=== PATIENT | male | born 1945 | race Caucasian/White ===

== ENCOUNTER 2017-12-15 12:37 | Emergency (ER) | payer OTHER ==
[~2017-12-15] VITALS: Ht 172.7 cm; Wt 104.3 kg
== END 2017-12-15 20:03 | disposition home or self-care (01) ==
LOC: ER 12:37
DX: R07.89 Other chest pain (principal); R55 Syncope and collapse; I65.23 Occlusion and stenosis of bilateral carotid arteries

== ENCOUNTER 2020-07-25 09:39 | Outpatient (CLI) | payer OTHER | END 2020-07-25 09:50 | disposition home or self-care (01) | LOC: TOM 09:39 → NUCLEAR 07-27 14:00 | PROVIDERS: ATTEND Internal Medicine Cardiovascular Disease | DX: K80.80 Other cholelithiasis without obstruction (principal); I70.8 Atherosclerosis of other arteries; Z13.0 Encounter for screening for diseases of the blood and blood-forming organs and certain disorders involving the immune mechanism; Z12.6 Encounter for screening for malignant neoplasm of bladder ==

== ENCOUNTER 2020-07-27 13:36 | Outpatient (CLI) | payer OTHER | END 2020-07-27 13:45 | disposition home or self-care (01) | LOC: NUCLEAR 13:36 | PROVIDERS: ATTEND Internal Medicine Cardiovascular Disease | DX: M81.0 Age-related osteoporosis without current pathological fracture (principal) ==

== ENCOUNTER 2020-08-21 07:39 | Outpatient (CLI) | payer OTHER | END 2020-08-21 07:50 | disposition home or self-care (01) | LOC: SONOGRAMA 07:39 → MAMO-SONO 08:30 | PROVIDERS: ATTEND Internal Medicine Cardiovascular Disease | DX: K80.80 Other cholelithiasis without obstruction (principal) ==

== ENCOUNTER → 2023-01-16 | Emergency (ER) | payer OTHER ==
[~2023-01-16] VITALS: Ht 170.2 cm; Wt 98.9 kg
[~2023-01-16] MED LIST: CRESTOR10 MG PO; GLUCOTROL XL5 MG PO; HUMALOG100 UNIT/2 IM; OZEMPIC1 MG/0.71 IM; PAMELOR75 M1 PO; PLAVIX75 MG PO; PROZAC20 MG PO; ZYPREXA7.5 MG PO
== END | disposition home or self-care (01) ==
LOC: ER 12:05
DX: S01.01XA Laceration without foreign body of scalp, initial encounter (principal); W18.39XA Other fall on same level, initial encounter; Y93.89 Activity, other specified; Y92.018 Other place in single-family (private) house as the place of occurrence of the external cause

== ENCOUNTER 2023-08-26 13:13 | Outpatient (CLI) | payer OTHER | END 2023-08-26 13:22 | disposition home or self-care (01) | LOC: RAD 13:13 | DX: S92.331A Displaced fracture of third metatarsal bone, right foot, initial encounter for closed fracture (principal) ==

== ENCOUNTER 2023-08-26 13:26 | Outpatient (CLI) | payer OTHER | END 2023-08-26 13:30 | disposition home or self-care (01) | LOC: NUCLEAR 13:26 | PROVIDERS: ATTEND Internal Medicine Cardiovascular Disease | DX: I70.219 Atherosclerosis of native arteries of extremities with intermittent claudication, unspecified extremity (principal) ==

== ENCOUNTER 2023-09-01 10:37 | Outpatient (CLI) | payer OTHER | END 2023-09-01 10:38 | disposition home or self-care (01) | LOC: NUCLEAR 10:37 | PROVIDERS: ATTEND Internal Medicine Cardiovascular Disease | DX: I70.219 Atherosclerosis of native arteries of extremities with intermittent claudication, unspecified extremity (principal) ==

== ENCOUNTER 2023-12-19 10:30 | Outpatient (CLI) | payer OTHER | END 2023-12-19 10:35 | disposition home or self-care (01) | LOC: RAD 10:30 | DX: M54.2 Cervicalgia (principal); M54.6 Pain in thoracic spine; M54.51 Vertebrogenic low back pain ==

== ENCOUNTER 2024-05-07 10:03 | Outpatient (CLI) | payer OTHER | END 2024-05-07 10:11 | disposition home or self-care (01) | LOC: RAD 10:03 | PROVIDERS: ATTEND Physical Medicine & Rehabilitation Sports Medicine | DX: M16.12 Unilateral primary osteoarthritis, left hip (principal) ==

== ENCOUNTER 2025-03-08 12:15 | Inpatient (IN) | payer OTHER ==
[~2025-03-08] VITALS: Ht 152.4 cm; Wt 93.9 kg
[2025-03-08] MEDS ORDERED: FAMOTIDINE/PF 20 MG in 0.9 % SODIUM CHLORIDE 8 ML IV PUSH SCH (13:35)
[2025-03-08] MEDS ORDERED: 0.9 % SODIUM CHLORIDE 1,000 ML IV SCH (13:45)
[2025-03-08] MEDS ORDERED: MORPHINE SULFATE 4 MG/ML CARTRIDGE IV PRN (13:45)
[2025-03-08] MEDS ORDERED: ONDANSETRON HCL 4 MG in DEXTROSE 5 % IN WATER 50 ML IV PRN ×2 (13:45→18:00)
[2025-03-08 15:29] LABS: BASO % 0.4 % (0.1-1.2); EOS # 0.03 (0.04-0.54); EOS % 0.2 % (0.7-7.0); LYMPH # 0.72 (1.18-3.74); LYMPH % 4.9 % (19.3-53.1); MEAN PLATELET VOLUME 9.50 fl (9.4-12.4); MONO # 0.88 (0.24-0.82); MONO % 6.0 % (4.7-12.5); NEUT # 12.63 (1.56-6.13); NEUT % 86.6 % (34.0-71.1); RED CELL DISTRIBUTION WIDTH 13.4 % (11.6-14.4)
[2025-03-08 15:37] VITALS: BP 99/70; O2SAT 96
[2025-03-08 15:51] LABS: ALT/SGPT 31.0 U/L (12-78); AST/SGOT 16.0 U/L (15-37); BILIRUBIN TOTAL 0.6 mg/dL (0.3-1.2); BUN CREA RATIO 12.0 (7.0-25.0); CREATININE SERUM 1.76 mg/dL (0.70-1.30); GFR 37.64; GLOBULINA 3.9 G/DL (2.4-3.5); TSH 1.02 uIU/mL (0.358-3.74)
[2025-03-08 15:53] LABS: INR 1.23
[2025-03-08 16:22] LABS: GLUCOSE FASTING 273.0 mg/dL (65-100); OSMOLALITY SERUM 270.0 MOSM/KG (275-295)
[2025-03-08] MEDS ORDERED: METOPROLOL SUCCINATE 25 MG TAB.SR.24H PO SCH (17:00)
[2025-03-08] MEDS ORDERED: DEXTROSE 50 % IN WATER 0.5 G/ML VIAL IV PRN (18:15)
[2025-03-08] MEDS ORDERED: INSULIN LISPRO 1,000 UNIT/10 ML UNITS SUBCUTANEO PRN (18:15)
[2025-03-08] MEDS ORDERED: ENOXAPARIN SODIUM 40 MG/0.4 ML SYRINGE SUBCUTANEO SCH (21:00)
[2025-03-08 21:46] VITALS: BP 126/67
[2025-03-09 01:58] VITALS: BP 125/76; O2SAT 97
[2025-03-09 07:13] LABS: BUN CREA RATIO 14.0 (7.0-25.0); CREATININE SERUM 1.59 mg/dL (0.70-1.30); GFR 42.32; GLUCOSE FASTING 177.0 mg/dL (65-100); OSMOLALITY SERUM 267.0 MOSM/KG (275-295)
[2025-03-09] MEDS ORDERED: CEFTRIAXONE SODIUM 2,000 MG in 0.9 % SODIUM CHLORIDE 100 ML IV SCH (09:00)
[2025-03-09 09:09] VITALS: BP 144/82; O2SAT 17
[2025-03-09 15:59] LABS: ABG PH 7.463 (7.35-7.45); ABG PO2 69.4 mmHg (80-100); BICARBONATE 22.7 mmol/l (23-25)
[2025-03-09 16:00] LABS: o2 21 %
[2025-03-09 16:51] VITALS: BP 169/83
[2025-03-09] MEDS ORDERED: HYOSCYAMINE SULFATE 0.125 MG TAB.SUBL SL SCH (21:00)
[2025-03-10 03:23] VITALS: BP 136/73; O2SAT 95
[2025-03-10] MEDS ORDERED: METRONIDAZOLE/SODIUM CHLORIDE 500 MG/100 ML PIGGYBACK IV SCH (09:00)
[2025-03-10 09:47] VITALS: BP 150/79; O2SAT 100
[2025-03-10 10:06] VITALS: O2SAT 95
[2025-03-10 18:03] VITALS: BP 152/80
[2025-03-10 18:17] VITALS: O2SAT 87
[2025-03-11 03:34] VITALS: BP 157/81
[2025-03-11 06:05] LABS: BASO % 0.4 % (0.1-1.2); EOS # 0.12 (0.04-0.54); EOS % 1.1 % (0.7-7.0); LYMPH # 0.40 (1.18-3.74); LYMPH % 3.8 % (19.3-53.1); MEAN PLATELET VOLUME 9.60 fl (9.4-12.4); MONO # 1.03 (0.24-0.82); MONO % 9.8 % (4.7-12.5); NEUT # 8.82 (1.56-6.13); NEUT % 84.4 % (34.0-71.1); RED CELL DISTRIBUTION WIDTH 12.6 % (11.6-14.4)
[2025-03-11 07:20] LABS: ALT/SGPT 120.0 U/L (12-78); AST/SGOT 156.0 U/L (15-37); BILIRUBIN TOTAL 0.3 mg/dL (0.3-1.2); BUN CREA RATIO 14.0 (7.0-25.0); CREATININE SERUM 1.02 mg/dL (0.70-1.30); GFR 70.63; GLOBULINA 2.9 G/DL (2.4-3.5); GLUCOSE FASTING 131.0 mg/dL (65-100); OSMOLALITY SERUM 261.0 MOSM/KG (275-295)
[2025-03-11 10:13] VITALS: BP 149/75; O2SAT 99
[2025-03-11] MEDS ORDERED: DIPHENHYDRAMINE HCL 50 MG/ML VIAL 1ML IV NR (17:00)
[2025-03-11] MEDS ORDERED: METHYLPREDNISOLONE SOD SUCC 40 MG VIAL IV NR (17:00)
[2025-03-11 17:59] VITALS: BP 173/83
[2025-03-11] MEDS ORDERED: DIPHENHYDRAMINE HCL 50 MG/ML VIAL 1ML IV SCH (20:15)
[2025-03-12] VITALS (7 sets, daily range): BP systolic 149–168; BP diastolic 82–84; O2SAT 93–97
[2025-03-12] MEDS ORDERED: METHYLPREDNISOLONE SOD SUCC 40 MG VIAL IV SCH
[2025-03-12] MEDS ORDERED: FLUOXETINE HCL 10 MG CAPSULE PO SCH (09:00)
[2025-03-12] MEDS ORDERED: FLUOXETINE HCL 20 MG CAPSULE PO SCH (09:00)
[2025-03-13 03:32] VITALS: BP 172/94; O2SAT 98
[2025-03-13 08:29] VITALS: BP 155/85; O2SAT 93
[2025-03-13] MEDS ORDERED: LOSARTAN POTASSIUM 25 MG TABLET PO SCH (09:00)
[2025-03-13] MEDS ORDERED: FLUOXETINE HCL 20 MG CAPSULE PO SCH (09:00)
[2025-03-13 10:07] LABS: BASO % 0.5 % (0.1-1.2); EOS # 0.10 (0.04-0.54); EOS % 1.2 % (0.7-7.0); LYMPH # 0.53 (1.18-3.74); LYMPH % 6.5 % (19.3-53.1); MEAN PLATELET VOLUME 9.50 fl (9.4-12.4); MONO # 1.02 (0.24-0.82); NEUT # 6.37 (1.56-6.13); NEUT % 78.2 % (34.0-71.1); RED CELL DISTRIBUTION WIDTH 13.2 % (11.6-14.4)
[2025-03-13 10:23] LABS: MONO % 12.5 % (4.7-12.5)
[2025-03-13 10:33] LABS: BUN CREA RATIO 13.0 (7.0-25.0); CREATININE SERUM 1.09 mg/dL (0.70-1.30); GFR 65.42; OSMOLALITY SERUM 274.0 MOSM/KG (275-295)
[2025-03-13 10:58] LABS: GLUCOSE FASTING 258.0 mg/dL (65-100)
[2025-03-13 11:13] VITALS: O2SAT 100
[2025-03-13 19:19] VITALS: BP 158/80
[2025-03-13] MEDS ORDERED: INSULIN GLARGINE,HUM.REC.ANLOG 1,000 UNITS/10 ML UNITS SUBCUTANEO SCH (23:00)
[2025-03-14 02:38] VITALS: BP 174/84; O2SAT 97
[2025-03-14] MEDS ORDERED: POTASSIUM CHLORIDE 8 MEQ TABLET PO SCH (09:00)
[2025-03-14 09:13] VITALS: BP 146/83; O2SAT 96
[2025-03-14 17:39] VITALS: BP 177/94
[2025-03-15 01:54] VITALS: BP 160/73; O2SAT 95
[2025-03-15 08:42] VITALS: BP 146/79; O2SAT 97
[2025-03-15] MEDS ORDERED: LANTUS SOL100 UNIT/1 SUBCUTANEO (15:24)
[2025-03-15] MEDS ORDERED: PAMELOR75 M1 PO (15:35)
[2025-03-15] MEDS ORDERED: PROZAC20 MG PO ×2 (15:35)
[2025-03-15] MEDS ORDERED: HYOSCYAMINE0.125 M1 SL (15:35)
[2025-03-15] MEDS ORDERED: FAMOTIDINE20 MG PO (15:35)
[2025-03-15] MEDS ORDERED: TOPROL XL25 M1 PO (15:35)
[2025-03-15] MEDS ORDERED: METRONIDAZOLE500 MG PO (15:35)
[2025-03-15] MEDS ORDERED: POTASSIUM CHLOR8 ME1 PO (15:35)
[2025-03-15] MEDS ORDERED: LOSARTAN POTASS25 MG PO (15:35)
[2025-03-15] MEDS ORDERED: CEFADROXIL500 MG PO (15:35)
[2025-03-15] MEDS ORDERED: INSULIN GLARGINE,HUM.REC.ANLOG 1,000 UNITS/10 ML UNITS SUBCUTANEO STA (16:36)
== END 2025-03-15 16:42 | disposition home or self-care (01) | DRG 445 ==
LOC: ER 12:15 → SEC-K 14:22 → MEDJ 14:22
PROVIDERS: ADMIT Internal Medicine Cardiovascular Disease; ATTEND Internal Medicine Cardiovascular Disease
PROC: BW40ZZZ Ultrasonography of Abdomen (ICD-10-PCS; principal; 2025-03-08)
PROC: B246ZZZ Ultrasonography of Right and Left Heart (ICD-10-PCS; 2025-03-08)
PROC: 4A12X4Z Monitoring of Cardiac Electrical Activity, External Approach (ICD-10-PCS; 2025-03-09)
PROC: 4A033R1 Measurement of Arterial Saturation, Peripheral, Percutaneous Approach (ICD-10-PCS; 2025-03-09)
PROC: 30233N1 Transfusion of Nonautologous Red Blood Cells into Peripheral Vein, Percutaneous Approach (ICD-10-PCS; 2025-03-12)
DX: K80.00 Calculus of gallbladder with acute cholecystitis without obstruction (principal); E87.1 Hypo-osmolality and hyponatremia; R10.9 Unspecified abdominal pain; E11.9 Type 2 diabetes mellitus without complications; I25.10 Atherosclerotic heart disease of native coronary artery without angina pectoris; E78.00 Pure hypercholesterolemia, unspecified; I10 Essential (primary) hypertension; E87.6 Hypokalemia; D64.9 Anemia, unspecified

== ENCOUNTER 2025-05-18 08:00 | Day surgery (SDC) | payer OTHER ==
[~2025-05-18 08:00] MED LIST changes: +CEFADROXIL500 MG PO; +FAMOTIDINE20 MG PO; +HYOSCYAMINE0.125 M1 SL; +LANTUS SOL100 UNIT/1 SUBCUTANEO; +LOSARTAN POTASS25 MG PO; +METRONIDAZOLE500 MG PO; +POTASSIUM CHLOR8 ME1 PO; +TOPROL XL25 M1 PO
[2025-05-18] MEDS ORDERED: ENOXAPARIN SODIUM 40 MG/0.4 ML SYRINGE SUBCUTANEO ONE (08:09)
[2025-05-18] MEDS ORDERED: ERTAPENEM SODIUM 1,000 MG VIAL ONE (08:10)
[2025-05-18] MEDS ORDERED: DIPHENHYDRAMINE HCL 50 MG/ML VIAL 1ML IV ONE (13:00)
[2025-05-18] MEDS ORDERED: PERCOCET 5-3251 EACH PO (13:35)
== END 2025-05-18 16:55 | disposition home or self-care (01) ==
LOC: CIR.AMB 08:00
PROVIDERS: ATTEND Surgery
DX: K80.10 Calculus of gallbladder with chronic cholecystitis without obstruction (principal); Z88.0 Allergy status to penicillin; Z91.013 Allergy to seafood